=== PATIENT | female | born 2000 | race Caucasian/White ===

== ENCOUNTER 2019-02-15 14:03 | Emergency (ER) | payer OTHER ==
[~2019-02-15] VITALS: Ht 165.1 cm; Wt 63.5 kg
[2019-02-15 14:38] LABS: URINE BILIRUBIN NEGATIVE (Negative); URINE BLOOD TRACE (Negative); URINE CLARITY CLEAR; URINE COLOR YELLOW; URINE GLUCOSE-RANDOM* NEGATIVE (Negative); URINE KETONES TRACE (Negative); URINE LEUKOCYTES-REFLEX 2+ (Negative); URINE NITRITE-REFLEX NEGATIVE (Negative); URINE PROTEIN (DIPSTICK) NEGATIVE (Negative); URINE SPECIFIC GRAVITY 1.015 (1.005-1.035); URINE UROBILINOGEN 0.2 E.U./dl (0.2-1.0)
[2019-02-15 15:08] LABS: CASTS None Seen /LPF (None Seen); CRYSTALS None Seen /LPF (None Seen); SQUAMOUS 4-10 Moderate /LPF (0-3); URINE RBC 0-2 Rare /HPF (0-2); URINE WBC-REFLEX 6-15 Few /HPF (0-5)
[2019-02-15 15:29] LABS: HEMATOCRIT 36.1 % (37.0-47.0); HEMOGLOBIN 12.4 gm/dL (12.0-15.0); MCH 30.2 pg (26.0-34.0); MCHC 34.2 g/dL (28.0-37.0); MCV 88.1 fL (80.0-100.0); RBC 4.1 mil/uL (4.20-5.00); WBC 6.2 thou/uL (4.0-11.0)
[2019-02-15 15:46] LABS: CALCIUM 9.1 mg/dL (8.5-10.1); CREATININE 0.8 mg/dL (0.6-1.0); POTASSIUM 3.8 mmol/L (3.5-5.1)
[2019-02-15 15:50] LABS: ALBUMIN 3.5 g/dL (3.4-5.0); TOTAL BILIRUBIN 0.2 mg/dL (<0.1-1.0); TOTAL PROTEIN 7.3 g/dL (6.4-8.2)
[2019-02-15 16:44] VITALS: BP 107/63
--- NOTE | 2019-02-16 07:58 | EKG ---
[address] [address] ELECTROCARDIOGRAM REPORT Name: PATRICIA ZHOULYN Tavo Room #: [facility]#: [id number] ������������������ Admission: 02/15/19 ������������������ Attend Phys: Discharge: 02/15/19 ������������������ Date of : 89 Report #: [id number] ����������������������������������������������������������������� [id number] THIS REPORT FOR: //name// [facility] ED Test Date: 2019-02-15 Test Time: 14:51:05 Pat Name: JAYDEN ZHOU Department: Room: Gender: F [employer] Supervisor: JEFF : 2000 Requested By: Sarah Espinoza Order Number: [id number] MD: Tremaine Ochoa Measurements Intervals Mccrory Rate: 65 P: 42 TN: 150 QRS: -6 QRSD: 86 T: 32 QT: 362 QTc: 377 Interpretive Statements Sinus arrhythmia No previous ECG available for comparison Electronically Signed On 02-16-2019 7:58:33 CDT by Tremaine Ochoa [email or web address] ��������������������������������������������� <ELECTRONICALLY SIGNED> ���������������������������������������� By: Tremaine Ochoa MD ��������������������������������������������� 02/16/19 [id number] 1451 1451 MD NIK Cm
== END 2019-02-15 16:35 | disposition home or self-care (01) ==
LOC: ER 14:03
PROVIDERS: Physician Assistant
DX: F41.9 Anxiety disorder, unspecified (principal); R06.02 Shortness of breath; R42 Dizziness and giddiness